=== PATIENT | female | born 1960 | race Two or more races ===

== ENCOUNTER 2024-02-14 15:29 | Emergency (ER) | payer OTHER, SELFPAY ==
--- NOTE | ~2024-02-14 | US_ITS ---
EXAMINATION: US VENOUS ULTRASOUND WITH DOPPLER LOWER EXTREMITY, LEFT CLINICAL INFORMATION: Left calf/posterior knee pain COMPARISON: None available. TECHNIQUE: Ultrasound of the deep veins is performed from the hip to the calf with compression sonography and color and pulse Doppler assessment. Spectral analysis with color-flow imaging is performed. FINDINGS: There is normal venous compression and respiratory variation and augmented flow. The visualized common femoral vein, superficial femoral vein, profunda femoral vein, popliteal vein, and the trifurcation region shows no evidence of deep venous thrombosis. There is no significant popliteal fossa cyst. If the patient's symptoms persist, followup ultrasound in 5 days 7 days might be of value to exclude proximal propagation from a non-visualized calf vein. US/US venous duplex LE LT IMPRESSION: No DVT demonstrated in the left lower extremity.
--- NOTE | ~2024-02-14 | XR_ITS ---
EXAMINATION: XR KNEE, LEFT CLINICAL INFORMATION: Knee pain COMPARISON: None available. TECHNIQUE: Four views of the left knee. FINDINGS: No evidence of acute fracture or malalignment. Tricompartmental left knee osteoarthritis, worst in the lateral femorotibial compartment, where it is least moderate as characterized by moderate joint space narrowing, osteophytosis, and subchondral sclerosis. Of note, evaluation of the joint space is limited in the absence of weightbearing views. Large suprapatellar joint effusion. Soft tissues unremarkable. XR/XR knee LT 4V IMPRESSION: 1. No evidence of acute fracture or malalignment of the left knee. 2. At least moderate tricompartmental left knee osteoarthritis with a large suprapatellar joint effusion.
[2024-02-14 16:02] VITALS: BP 117/69; PULSE 95; RESP 20; TEMP 36.2; O2SAT 100; BMI 37.1
--- NOTE | 2024-02-14 16:24 | ED.GENADULT ---
HPI - General Adult General Chief complaint: Extremity Problem Stated complaint: left leg swelling Time Seen by Provider: 02/14/24 16:42 Source: patient Mode of arrival: ambulatory Limitations: no limitations History of Present Illness ED Provider: Bridget FELIPE narrative: Patient is a 63-year-old female presenting to the emergency department with complaint of left posterior calf pain and left knee pain and swelling. States symptoms began 2 weeks ago with knee pain. She was seen at [facility] on 02/08 and noted to have osteoarthritis on x-ray. She was treated with a course of prednisone at that time which improved her symptoms, but once completed, the pain returned and is now in her calf as well. She denies chest pain or shortness of breath. Denies dizziness, lightheadedness. Denies fevers. Has not used any ÁNGEL wraps or other compression. complaint: left leg pain Onset (ago): week(s) Radiation: distal Quality: aching Pain Consistency: colicky Associated symptoms: denies other symptoms Treatments prior to arrival: other Related Data Previous Rx's ?Medication ?Instructions ?Recorded naproxen 500 mg tablet 500 mg PO BID PRN pain #14 tabs 02/14/24 prednisone 20 mg tablet 40 mg (2 x 20 mg) PO DAILY 5 days 02/14/24 #10 tabs Allergies Allergy/AdvReac Type Severity Reaction Status Date / Time No Known Allergies Allergy Verified 02/14/24 16:12 Review of Systems Review of Systems: As per HPI. Yes all other systems are reviewed and are negative Constitutional: Constitutional: Reports as per HPI [facility] Social History Social History Advance Directives: No Advance Directives Information Provided: No Physical Exam ED Vital Signs: Vital Signs - 24 hr 02/14/24 16:02 02/14/24 16:52 02/14/24 20:10 Temperature 97.1 F 96.8 F 97.1 F Pulse Rate 95 83 80 Respiratory Rate 20 18 18 Blood Pressure 117/69 136/69 139/68 Pulse Oximetry 100 98 99 Oxygen Delivery Method Room Air Room Air Room Air 02/14/24 21:22 Temperature 97.1 F Pulse Rate 80 Respiratory Rate 18 Blood Pressure 139/68 Pulse Oximetry 99 Oxygen Delivery Method Room Air BMI result Body Mass Index 37.1 Vital signs have been reviewed and appear to be correct. Blood pressure normal. Heart rate normal. Respiratory rate normal. Temperature normal. Oxygen saturation normal. Const General: cooperative and no acute distress Nutritional Appearance: obese Orientation/consciousness: oriented to person, oriented to place, oriented to time and patient oriented x3 Limitations: no limitations HENMT Head: Yes normocephalic and Yes atraumatic Ears: external ears normal General nose exam: Normal external nose present Face and sinus: Yes face symmetric Mouth: oropharynx normal and moist mucous membranes Throat: Yes uvula midline Eyes Pupils: Equal, round and reactive pupils present Neck Neck: Yes normal visual inspection and Yes supple Resp Effort & Inspection: normal respiratory effort and able to speak in complete sentences Auscultation: clear to auscultation bilaterally Cardio Rate: regular rate Rhythm: regular rhythm Heart sounds: S1 normal heart sound present and S2 normal heart sound present GI Palpation (GI): Soft to palpation and nontender Auscultation: normoactive bowel sounds General: Yes no CVA tenderness Back/Spine/Pelvis Back: no CVA tenderness Skin General skin exam: elasticity normal and turgor normal Neuro General: oriented to person, oriented to place, oriented to time, patient oriented x3, moves all extremities, no focal motor deficits and CN's II-XI intact bilaterally Cranial nerves: Yes Equal, round and reactive pupils present Cognition (Neuro): normal cognition Extrem General: Yes full ROM, Yes no pedal edema and Yes no calf tenderness Psych Mental Status: mental status grossly normal Affect: normal affect Thought process: Normal thought process present Course Course Course Narrative: RME: Done by EFRAIN villaseñor. 63 yold female presents to the ED For left posterionr and calf pain for 2 weeks. Patient an x-ray on the with showed osteoarthritis of left knee. Patient states symptoms improved with steroids but now left calf pain is worse. Physical exam negative for swelling, erythema, deformity, ecchymosis. X-ray labs ultrasound ordered.. Medical Decision Making Medical Decision Making MDM Narrative: Patient is a 63-year-old female presenting to the emergency department with complaint of left posterior calf pain and left knee pain and swelling. On exam patient is awake, A+Ox3, VS WNL, afebrile, normal neurological exam without focal deficits, physical exam findings as above. Given reported symptoms and physical exam findings, initial differential includes DVT, calf strain, osteoarthritis. Do not suspect septic arthritis. Labs notable for slight leukocytosis, elevated BUN. X-ray left knee notable for no evidence of fracture, moderate osteoarthritis with suprapatellar effusion. My interpretation is in agreement with the radiologist's interpretation. Patient signed out to EFRAIN Hare pending ultrasound results. Differential Diagnosis Differential Diagnoses: The differential diagnosis associated with the presentation includes As per [facility]. Admission/Observation Consideration of admission/observation: Escalation of care including admission/observation considered Patient would have been admitted to the hospital had their work up had any findings where hospital admission was appropriate and their clinical presentation warranted hospital admission. Lab Data [facility] Lab Attestation statement: I reviewed the patient's lab results. As per [facility] 02/14/24 16:26 02/14/24 16:26 Labs: Lab Results 02/14/24 Range/Units 16:26 WBC 12.9 H (4.8-10.8) X10*3/uL RBC 4.34 (4.20-5.50) X10*6/uL Hgb 12.7 (12.0-16.0) g/dl Hct 38.4 (37.0-47.0) % MCV 88.5 (80.0-98.0) fL MCH 29.3 (27.0-33.0) pg MCHC 33.1 (31.0-35.0) g/dl RDW 12.7 (11.0-16.0) % Plt Count 396 (160-400) X10*3/uL MPV 9.1 L (9.4-12.3) fL Immature Gran % (Auto) 2.3 H (0.0-0.4) % Neut % (Auto) 65.7 (45-73) % Lymph % (Auto) 23.3 (20-40) % [place] % (Auto) 6.6 (2-11) % Eos % (Auto) 1.6 (0-4) % Baso % (Auto) 0.5 (0-2) % Lymph # (Auto) 3.0 (1.2-4.9) X10*3/uL [place] # (Auto) 0.9 (0.1-1.2) X10*3/uL Eos # (Auto) 0.2 (0.0-0.4) X10*3/uL Baso # (Auto) 0.1 (0.0-0.2) X10*3/uL Abs Immat Gran (auto) 0.30 H (0.00-0.03) X10*3/uL Absolute Neuts (auto) 8.4 H (2.0-8.3) x10*3/uL Absolute Nucleated RBC 0.000 (0.0-0.012) X10*3/uL Nucleated RBC % (auto) 0.0 (0.0-0.2) /100WBC PT 11.9 (11.1-13.3) SEC INR 1.0 (0.9-1.1) APTT 29.5 (26.0-36.8) SEC Sodium 141 (135-145) mmol/L Potassium 4.5 (3.3-5.1) mmol/L Chloride 105 (96-108) mmol/L Carbon Dioxide 28 (22-29) mmol/L Anion Gap 13 (12-20) BUN 32 H (9-16) mg/dL Creatinine 1.00 (0.5-1.4) mg/dL Estim Creat Clear Calc 72.1 Estimated GFR 56 Random Glucose 130 H (60-115) mg/dL Calcium 9.6 (8.4-10.2) mg/dL Total Bilirubin 0.2 (0.0-1.0) mg/dL AST 12 (5-31) U/L ALT 11 (0-31) U/L Alkaline Phosphatase 73 (39-117) U/L Total Protein 7.4 (6.5-8.0) g/dL Albumin 4.2 (3.5-5.0) g/dL Independent Interpretation I performed an independent interpretation of an: Plain X-Ray Interpretation: X-ray left knee notable for no evidence of fracture, moderate osteoarthritis with suprapatellar effusion. Radiology Impression Discussion of test interpretation with radiology: I have reviewed the radiologist's reading. Radiologist Impression: XR/XR knee LT 4V IMPRESSION: 1. No evidence of acute fracture or malalignment of the left knee. 2. At least moderate tricompartmental left knee osteoarthritis with a large suprapatellar joint effusion. External Record Review External record reviewed: Inpatient record, Office record and Outpatient record Discharge Plan Discharge Clinical Impression: Left leg pain, Effusion of knee joint, left, Osteoarthritis Patient Disposition: Home, Self-Care Instructions: Osteoarthritis (ED), Swollen Knee Joint (ED) Additional Instructions: One of your labs was abnormal today, your BUN was 32 but your creatinine was normal. We recommend drinking plenty of fluids by mouth and following up with your primary care provider to have this rechecked. Return to the ED immediately okay for increased swelling, redness erythema, bluish black discoloration, stiffness, fever, chills, inability to walk, or any other concerning symptoms. US/US venous duplex LE LT IMPRESSION: No DVT demonstrated in the left lower extremity. XR/XR knee LT 4V IMPRESSION: 1. No evidence of acute fracture or malalignment of the left knee. 2. At least moderate tricompartmental left knee osteoarthritis with a large suprapatellar joint effusion. Prescriptions: New naproxen 500 mg tablet 500 mg PO BID PRN (Reason: pain) Qty: 14 0RF prednisone 20 mg tablet 40 mg PO DAILY 5 Days Qty: 10 0RF Referrals: [facility] [Provider Group] (left knee osteoarthritis. joint effussion in knee) Interventions: ED Discharge Assessment Last Done: 02/14/24 21:22 Discharge Date/Time: 02/14/24 21:22 Print Language: Greek
[2024-02-14 16:33] LABS: MANUAL DIFF FLAG NO
[2024-02-14 16:35] LABS: Basophils Absolute Auto 0.1 X10*3/uL (0.0-0.2); Basophils Percent Auto 0.5 % (0-2); Eosinophils Absolute Auto 0.2 X10*3/uL (0.0-0.4); Eosinophils Percent Auto 1.6 % (0-4); Hematocrit 38.4 % (37.0-47.0); Hemoglobin 12.7 g/dl (12.0-16.0); Imm Gran Pct Auto 2.3 % (0.0-0.4); Lymphocytes Percent Auto 23.3 % (20-40); Mean Corpuscular HGB Conc 33.1 g/dl (31.0-35.0); Mean Corpuscular Hemoglobin 29.3 pg (27.0-33.0); Mean Corpuscular Volume 88.5 fL (80.0-98.0); Mean Platelet Volume 9.1 fL (9.4-12.3); Monocytes Absolute Auto 0.9 X10*3/uL (0.1-1.2); Monocytes Percent Auto 6.6 % (2-11); Neutrophils Absolute Auto 8.4 x10*3/uL (2.0-8.3); Neutrophils Percent Auto 65.7 % (45-73); Platelet Count 396 X10*3/uL (160-400); Red Blood Count 4.34 X10*6/uL (4.20-5.50); Red Cell Distribution Width 12.7 % (11.0-16.0); White Blood Count 12.9 X10*3/uL (4.8-10.8)
[2024-02-14 16:44] LABS: Prothrombin Time 11.9 SEC (11.1-13.3)
[2024-02-14 16:47] LABS: Partial Thromboplastin Time 29.5 SEC (26.0-36.8)
[2024-02-14 16:52] VITALS: BP 136/69; PULSE 83; RESP 18; TEMP 36; O2SAT 98
[2024-02-14 17:07] LABS: Alanine Aminotransferase 11 U/L (0-31); Albumin Level 4.2 g/dL (3.5-5.0); Alkaline Phosphatase 73 U/L (39-117); Anion Gap 13 (12-20); Aspartate Amino Transferase 12 U/L (5-31); Bilirubin Total 0.2 mg/dL (0.0-1.0); Blood Urea Nitrogen 32 mg/dL (9-16); Calcium 9.6 mg/dL (8.4-10.2); Carbon Dioxide 28 mmol/L (22-29); Chloride 105 mmol/L (96-108); Creatinine Clr Calc Pharmacy 72.1; Estimated Glomerular Filt Rate 56; Glucose Random 130 mg/dL (60-115); Potassium 4.5 mmol/L (3.3-5.1); Sodium 141 mmol/L (135-145); Total Protein 7.4 g/dL (6.5-8.0)
[2024-02-14 20:10] VITALS: BP 139/68; PULSE 80; RESP 18; TEMP 36.2; O2SAT 99
[2024-02-14 21:22] VITALS: BP 139/68; PULSE 80; RESP 18; TEMP 36.2; O2SAT 99
== END 2024-02-14 21:22 | disposition home or self-care (01) ==
PROVIDERS: Physician Assistant; Emergency Provider Internal Medicine; PCP Internal Medicine
DX: R60.0 Localized edema (principal); M17.12 Unilateral primary osteoarthritis, left knee; M79.605 Pain in left leg; Z79.899 Other long term (current) drug therapy
CPT/HCPCS: 36415; 73564; 80053; 85025; 85610; 85730; 93971; 99283

== ENCOUNTER 2024-04-02 07:20 | Emergency (ER) | payer OTHER, SELFPAY ==
--- NOTE | ~2024-04-02 | XR_ITS ---
EXAMINATION: XR KNEE, RIGHT CLINICAL INFORMATION: Pain and swelling in right knee COMPARISON: None available. TECHNIQUE: Four views of the right knee. FINDINGS: The large suprapatellar joint effusion without loose bodies. No visible acute fracture or dislocation seen. There is loss of tricompartment joint space with periarticular spurring of medial and patellofemoral compartments. No visible acute fracture or dislocation seen. XR/XR knee RT 3V IMPRESSION: 1. Large suprapatellar joint effusion without loose bodies. 2. Degenerative changes medial and patellofemoral compartments. No visible acute fracture or dislocation seen. Electronically signed by: Hugo Jimenez MD 04/02/2024 08:05 AM EDT
[2024-04-02 07:29] VITALS: BP 152/88; PULSE 87; RESP 18; TEMP 36.7; O2SAT 100; BMI 37.4
--- NOTE | 2024-04-02 07:31 | ED_ITS ---
HPI - Extremity Injury (Lower) General Chief Complaint: Extremity Injury, Lower Stated Complaint: r knee swelling Time Seen by Provider: 04/02/24 07:21 Source: patient Mode of arrival: ambulatory Limitations: no limitations History of Present Illness HPI Narrative: This is a 63 years old patient presented to the emergency department complaining of right knee pain and swelling times week. She has history of arth ritis denies any trauma MD complaint: other (rt knee pain and swelling) Onset (ago): week(s) (1) Injury: Right: knee Severity: moderate Relieving factors: nothing Exacerbating factors: nothing Related Data Previous Rx's ?Medication ?Instructions ?Recorded naproxen 500 mg tablet 500 mg PO BID PRN pain #14 tabs 02/14/24 prednisone 20 mg tablet 40 mg (2 x 20 mg) PO DAILY 5 days 02/14/24 #10 tabs prednisone 20 mg tablet 20 mg PO DAILY 5 days #5 tabs 04/02/24 Allergies Allergy/AdvReac Type Severity Reaction Status Date / Time No Known Allergies Allergy Verified 04/02/24 07:30 Review of Systems Constitutional: Constitutional: Reports no additional constitutional complaints ENT: Reports system reviewed and no additional complaints, except as documented Respiratory: Respiratory: Reports no additional respiratory complaints [facility] Past Medical History [facility] Narrative: Arthritis Social History Social History Smoked in Last 30 Days: No Use of substances other than those prescribed or required for medical reasons: No Advance Directives: No Advance Directives Information Provided: No Physical Exam Vital Signs: Vital Signs: Last Vital Signs Temp 98.0 F 04/02/24 11:28 Pulse 78 04/02/24 11:28 Resp 16 04/02/24 11:28 BP 145/67 H 04/02/24 11:28 Pulse Ox 99 04/02/24 11:28 O2 Del Method Room Air 04/02/24 11:28 BMI result Body Mass Index 37.4 Const: General: cooperative Nutritional Appearance: average body habitus Orientation/consciousness: patient oriented x3 Limitations: no limitations HEENT: Head: Yes normal to inspection Ears: hearing grossly normal bilaterally General nose exam: Normal external nose present Face and sinus: Yes normal facial exam Mouth: Normal oral and palatal mucosa present Teeth and gingiva: dentition normal Throat: Yes posterior oropharynx normal Neck: Neck: Yes normal visual inspection Chest: Chest palpation & inspection: normal inspection of the chest Resp: Effort & Inspection: normal respiratory effort Auscultation: clear to auscultation bilaterally Cardio: Jugular venous distension: no JVD Rate: regular rate Rhythm: regular rhythm GI: Inspection: Yes normal to inspection Auscultation: normal bowel sounds Skin: General skin exam: no rashes or lesions noted Lesions: no lesions Rashes: no rashes Neuro: General: patient oriented x3 Extrem: Other: Examination of the right knee showed joint effusion no deformity no redness Right lower extremity: normal capillary refill Course Reevaluation(s) Reevaluation #1: Patient remained stable she is afebrile I do not think she has a septic joint results of the synovial fluid is pending including uric acid I called the labs they said that it is a sent out test to [facility], patient stated the past she did really well with prednisone I will give a prescription for prednisone. Again at this point the synovial fluid result is pending G stain is negative no organisms seen Time: 11:23 Medications Administered Discontinued Medications Generic Name Dose Route Start Last Admin Trade Name Freq PRN Reason Stop Dose Admin Lidocaine HCl 10 ml 04/02/24 09:15 04/02/24 10:02 Lidocaine Hcl 1 % Mpf 5 Ml Vial INFILTRATI 04/02/24 09:16 10 ml ONCE ONE Administration Medical Decision Making Lab Data Labs: Lab Results 04/02/24 Range/Units 09:20 Synovial Source rt knee Synovial WBC 15.714 X10*3/uL Synovial RBC < 0.002 X10*6/uL Synovial Neutrophils 90 % Synovial Lymphocytes 2 % Synovial Monocytes 1 % Synovial Other Cells 1 Procedures Procedure Narrative Procedure Narrative: Right knee arthrocentesis Under local anesthesia I inserted 18 gauge needle aspirated about 70 cc of synovial fluid the fluid was sent to the labs for culture cell count uric acid patient tolerated the procedure well Discharge Plan Discharge Clinical Impression: Effusion, right knee Patient Disposition: Home, Self-Care Instructions: Swollen Knee Joint (ED), Joint Aspiration (DC) Additional Instructions: Follow-up with your primary care physician take prednisone as directed. Prescriptions: New prednisone 20 mg tablet 20 mg PO DAILY 5 Days Qty: 5 0RF No Action naproxen 500 mg tablet 500 mg PO BID PRN (Reason: pain) Qty: 14 0RF prednisone 20 mg tablet 40 mg PO DAILY 5 Days Qty: 10 0RF Referrals: Pedro Luis Jalloh MD [Primary Care Provider] - 04/05/24 Interventions: ED Discharge Assessment Last Done: 04/02/24 11:28 Print Language: Bengali
--- NOTE | 2024-04-02 07:36 | PC.NURSE ---
patient presents through external triage with cc of right knee pain and swelling for the last 3 days. patient states she has a hx of arthritis, had a similar episode recently with her left knee and recieved a cortisone shot with good effect. patient denies any recent falls, denies fevers or chills or sick contacts. CMS intact on right side, some weakness and stiffness to right knee. knee presents swollen and tender to the touch, provided with ice pack for comfort. MD at bedside to evaluate patient, patient awaiting xray at this time
[2024-04-02 07:39] VITALS: BP 152/88; PULSE 87; RESP 18; TEMP 36.7; O2SAT 100
[2024-04-02 09:30] LABS: Source Synovial Fluid rt knee
[2024-04-02] MEDS: Lidocaine HCl 1 % MPF 5 ML VIAL 10 ML INFILTRATI (10:02)
[2024-04-02 10:11] LABS: MN% 12.8 %; PMN% 87.2 %; RBC Synovial Fluid < 0.002 X10*6/uL
[2024-04-02 10:12] LABS: WBC Synovial Fluid 15.714 X10*3/uL
[2024-04-02 10:37] LABS: BF Shift QC OK YES; Lymphocytes Synovial Fluid 2 %; Man Diluent Bkgrd OK YES; Monocytes Synovial Fluid 1 %; Neutrophils Synovial Fluid 90 %; Other Cells Synovial Fluid 1
[2024-04-02 10:43] VITALS: BP 145/67; PULSE 78; RESP 16; TEMP 36.7; O2SAT 99
[2024-04-02 11:28] VITALS: BP 145/67; PULSE 78; RESP 16; TEMP 36.7; O2SAT 99
[2024-04-07 07:31] LABS: Uric Acid Synovial Fluid 4.3
[2024-04-07 07:32] LABS: Glucose Synovial Fluid 14
== END 2024-04-02 11:31 | disposition home or self-care (01) ==
PROVIDERS: Emergency Provider Emergency Medicine; PCP Internal Medicine
DX: M25.461 Effusion, right knee (principal); M25.561 Pain in right knee; Z79.52 Long term (current) use of systemic steroids
CPT/HCPCS: 20610; 73562; 82945; 83615; 84560; 87070; 87073; 87205; 89051; 99284; 99285

== ENCOUNTER 2025-05-14 10:59 | Emergency (ER) | payer OTHER, SELFPAY ==
--- NOTE | ~2025-05-14 | CT_ITS ---
CLINICAL HISTORY: large abscess CT chest with IV contrast. COMPARISON: None provided. FINDINGS: No supraclavicular or axillary lymphadenopathy. Ascending aorta and main pulmonary artery are normal in caliber. Mitral annular calcification. No pericardial effusion. Small hiatal hernia. No mediastinal lymphadenopathy. No pleural effusion. Minimal atelectasis along the posterior lower lobes. Trachea and central airways are clear. No significant bronchial wall thickening. No bronchiectasis. Organizing subcutaneous fluid collection present along the anterior lower chest wall at midline measuring 2.6 x 3.6 by 3.5 cm. No foreign body or extension into the chest or peritoneal cavity. Visualized portions of the upper abdomen are unremarkable. Moderate spondylosis. No acute fracture. IMPRESSION: 1. Subcutaneous abscess measuring up to 3.6 cm present along the lower chest/upper abdomen. No extension into the chest wall or peritoneal cavity. No foreign body identified. This document has been electronically signed by: Gaudencio Espinal MD on 05/14/2025 16:05:54
[2025-05-14 11:10] VITALS: BP 122/73; PULSE 92; RESP 14; TEMP 36.4; O2SAT 100; BMI 34.4
--- NOTE | 2025-05-14 11:38 | ED_ITS ---
HPI - General Adult General Chief complaint: Skin/Abscess/Foreign Body Stated complaint: abscess chest Time Seen by Provider: 05/14/25 13:24 Source: patient, RN notes reviewed and old records reviewed Mode of arrival: ambulatory Limitations: no limitations History of Present Illness ED Provider: Br[facility] narrative: Patient is a 64-year-old female presenting to the emergency department with complaint of abscess to her chest for the past month. States that it started out as a small area of erythema and has increased in size and is now causing pain. She denies any fevers, chills, body aches. Reports history of similar abscess in this area in the past. Also complains of increased pain to the area with swallowing. MD complaint: abscess Onset (ago): month(s) Related Data Previous Rx's ?Medication ?Instructions ?Recorded naproxen 500 mg tablet 500 mg PO BID PRN pain #14 t abs 02/14/24 prednisone 20 mg tablet 40 mg (2 x 20 mg) PO DAILY 5 days 02/14/24 #10 tabs prednisone 20 mg tablet 20 mg PO DAILY 5 days #5 tab s 04/02/24 cephalexin 500 mg capsule 500 mg PO QID 7 days #28 cap s 05/14/25 doxycycline hyclate 100 mg capsule 100 mg PO BID #14 c aps 05/14/25 Allergies Allergy/AdvReac Type Severity Reaction Status Date / Time No Known Allergies Allergy Verified 05/14/25 11:14 Review of Systems 2 Review of Systems: as per hpi Yes all other systems are reviewed and are negative Constitutional: Constitutional: Reports as per HPI Physical Exam ED Vital Signs: Vital Signs - 24 hr 05/14/25 11:10 05/14/25 14:36 05/14/25 16:26 Temperature 97.5 F 97.8 F 98.2 F Pulse Rate 92 92 82 Respiratory Rate 14 20 19 Blood Pressure 122/73 127/77 126/70 Pulse Oximetry 100 100 98 Oxygen Delivery Method Room Air Room Air Room Air BMI result Body Mass Index 34.4 Vital signs have been reviewed and appear to be correct. Blood pressure normal. Heart rate normal. Respiratory rate normal. Temperature normal. Oxygen saturation normal. Const General: cooperative, healthy appearing and no acute distress Orientation/consciousness: oriented to person, oriented to place, oriented to time and patient oriented x3 Limitations: no limitations HENMT Head: Yes normocephalic and Yes atraumatic Ears: external ears normal General nose exam: Normal external nose present Face and sinus: Yes face symmetric Mouth: oropharynx normal and moist mucous membranes Throat: Yes uvula midline Eyes Pupils: Equal, round and reactive pupils present Neck Neck: Yes normal visual inspection and Yes supple Chest Chest/axillae images: 2 1. 4cm abscess with surrounding erythema, pinhole areas of purulent drainage Resp Effort & Inspection: normal respiratory effort and able to speak in complete sentences Auscultation: clear to auscultation bilaterally Cardio Rate: regular rate Rhythm: regular rhythm Heart sounds: S1 normal heart sound present and S2 normal heart sound present GI Palpation (GI): Soft to palpation and nontender Auscultation: normoactive bowel sounds General: Yes no CVA tenderness Back/Spine/Pelvis Back: no CVA tenderness Skin General skin exam: elasticity normal and turgor normal Neuro General: oriented to person, oriented to place, oriented to time, patient oriented x3, moves all extremities, no focal motor deficits and CN's II-XI intact bilaterally Cranial nerves: Yes Equal, round and reactive pupils present Cognition (Neuro): normal cognition Extrem General: Yes full ROM, Yes no pedal edema and Yes no calf tenderness Psych Mental Status: mental status grossly normal Affect: normal affect Thought process: Normal thought process present Course Course Course Narrative: Rapid medical examination performed in triage by Ghazal Natarajan PA-C. Patient is a 64 year old assigned female at presenting to the emergency department with an abscess on her chest. Detailed physical exam and review of systems are deferred to the primary special educator. Labs ordered. Patient placed back in the waiting room pending room availability and results. Medications Administered Discontinued Medications Generic Name Dose Route Start Last Admin Trade Name Jacoboq PRN Reason Stop Dose Admin Iohexol 100 ml 05/14/25 15:24 05/14/25 15:24 Iohexol 350 Mg/Ml 100 Ml Infus..Btl IV 05/14/25 15:25 85 ml ONCE ONE Administration Procedures Abscess I/D Site: chest Sedation/analgesia: other (morphine) Local Anesthetic: lidocaine 1% Amount of anesthesia used (mL): 3 Technique: incised with blade Amount of fluid expressed (mL): 5 Sent for culture/gram staining?: No Irrigation: Yes Packing used?: none Medical Decision Making Medical Decision Making MDM Narrative: Patient is a 64-year-old female presenting to the emergency department with complaint of abscess to her chest for the past month. On exam patient is awake, A+Ox3, VS WNL, afebrile, normal neurological exam without focal deficits, physical exam findings as above. Given reported symptoms and physical exam findings, initial differential includes but is not limited to superficial abscess versus deep space infection. Labs notable for no leukocytosis, mildly elevated ESR and CRP. CT chest notable for subcutaneous abscess not extending into chest wall. My interpretation is in agreement with the radiologist's interpretation. Abscess incised and drained as per procedure note. Patient tolerated well, no complications. Will discharge patient home on doxy and Keflex. Advised skin checks at least once per day. Return precautions discussed at bedside. Follow up with PCP. Patient verbalized understanding of and agreement with plan. Differential Diagnosis Differential Diagnoses: The differential diagnosis associated with the presentation includes As per [facility] Admission/Observation Consideration of admission/observation: Escalation of care including admission/observation considered Patient would have been admitted to the hospital and transferred to appropriate facility had their clinical presentation warranted hospital admission. Lab Data [facility] Lab Attestation statement: I reviewed the patient's lab results. as per [facility] 05/14/25 12:09 05/14/25 12:09 Labs: Lab Results 05/14/25 Range/Units 12:09 WBC 8.3 (4.8-10.8) X10*3/uL RBC 4.72 (4.20-5.50) X10*6/uL Hgb 13.2 (12.0-16.0) g/dl Hct 40.5 (37.0-47.0) % MCV 85.8 (80.0-98.0) fL MCH 28.0 (27.0-33.0) pg MCHC 32.6 (31.0-35.0) g/dl RDW 14.6 (11.0-16.0) % Plt Count 254 D (160-400) X10*3/uL MPV 9.4 (9.4-12.3) fL Immature Gran % (Auto) 0.6 H (0.0-0.4) % Neut % (Auto) 64.9 (45-73) % Lymph % (Auto) 25.7 (20-40) % Harris % (Auto) 6.5 (2-11) % Eos % (Auto) 1.9 (0-4) % Baso % (Auto) 0.4 (0-2) % Lymph # (Auto) 2.1 (1.2-4.9) X10*3/uL Harris # (Auto) 0.5 (0.1-1.2) X10*3/uL Eos # (Auto) 0.2 (0.0-0.4) X10*3/uL Baso # (Auto) 0.0 (0.0-0.2) X10*3/uL Abs Immat Gran (auto) 0.05 H (0.00-0.03) X10*3/uL Absolute Neuts (auto) 5.4 (2.0-8.3) x10*3/uL Absolute Nucleated RBC 0.000 (0.0-0.012) X10*3/uL Nucleated RBC % (auto) 0.0 (0.0-0.2) /100WBC ESR 28 H (0-20) MM/HR Sodium 145 (135-145) mmol/L Potassium 3.9 (3.3-5.1) mmol/L Chloride 110 H (96-108) mmol/L Carbon Dioxide 25 (22-29) mmol/L Anion Gap 14 (12-20) BUN 20 H (9-16) mg/dL Creatinine 0.83 (0.5-1.4) mg/dL Estim Creat Clear Calc 82.3 Estimated GFR > 60 Random Glucose 89 (60-115) mg/dL Calcium 9.3 (8.4-10.2) mg/dL Total Bilirubin 0.4 (0.0-1.0) mg/dL AST 16 (5-31) U/L ALT 13 (0-31) U/L Alkaline Phosphatase 70 (39-117) U/L C-Reactive Protein 1.19 H (< or = 0.50) mg/dL Total Protein 6.9 (6.5-8.0) g/dL Albumin 4.3 (3.5-5.0) g/dL Independent Interpretation I performed an independent interpretation of an: CT Scan Interpretation: CT chest notable for subcutaneous abscess not extending into chest wall. Radiology Impression Discussion of test interpretation with radiology: I have reviewed the radiologist's reading. Radiologist Impression: CT chest with IV contrast. COMPARISON: None provided. FINDINGS: No supraclavicular or axillary lymphadenopathy. Ascending aorta and main pulmonary artery are normal in caliber. Mitral annular calcification. No pericardial effusion. Small hiatal hernia. No mediastinal lymphadenopathy. No pleural effusion. Minimal atelectasis along the posterior lower lobes. Trachea and central airways are clear. No significant bronchial wall thickening. No bronchiectasis. Organizing subcutaneous fluid collection present along the anterior lower chest wall at midline measuring 2.6 x 3.6 by 3.5 cm. No foreign body or extension into the chest or peritoneal cavity. Visualized portions of the upper abdomen are unremarkable. Moderate spondylosis. No acute fracture. IMPRESSION: 1. Subcutaneous abscess measuring up to 3.6 cm present along the lower chest/upper abdomen. No extension into the chest wall or peritoneal cavity. No foreign body identified. External Record Review External record reviewed: Inpatient record, Office record and Outpatient record Prescription Management I considered prescription management with: Antibiotic Discharge Plan Discharge Clinical Impression: Abscess of chest Patient Disposition: Home, Self-Care Instructions: Abscess (ED), Abscess Follow-up (ED), Abscess Incision and Drainage (DC) Additional Instructions: You were evaluated in the ER for an abscess. Please keep the area surrounding the abscess clean and dry. You were given a prescription for antibiotics, please take the antibiotics as directed for the full course of the medication. You should perform a skin check of the area at least once per day. You can use Tylenol or ibuprofen per package directions as needed for pain. If necessary, you can alternate these medications so that you take one medication every 3 hours. For instance, at noon take ibuprofen, then at 3:00 p.m. take Tylenol, then at 6:00 p.m. take ibuprofen. Please schedule an appointment with your primary care physician as soon as possible for follow-up. Return to the emergency department if you experience fevers greater than 100.4? F, increased in area of redness or swelling, increasing amount of discharge from the area, increased tenderness around the area, or any other concerning symptoms. Prescriptions: New doxycycline hyclate 100 mg capsule 100 mg PO BID Qty: 14 0RF cephalexin 500 mg capsule 500 mg PO QID 7 Days Qty: 28 0RF No Action naproxen 500 mg tablet 500 mg PO BID PRN (Reason: pain) Qty: 14 0RF prednisone 20 mg tablet 40 mg PO DAILY 5 Days Qty: 10 0RF prednisone 20 mg tablet 20 mg PO DAILY 5 Days Qty: 5 0RF Print Language: Swedish
[2025-05-14 12:13] LABS: MANUAL DIFF FLAG NO
[2025-05-14 12:14] LABS: Hematocrit 40.5 % (37.0-47.0); Hemoglobin 13.2 g/dl (12.0-16.0); Imm Gran Abs Auto 0.05 X10*3/uL (0.00-0.03); Imm Gran Pct Auto 0.6 % (0.0-0.4); Lymphocytes Absolute Auto 2.1 X10*3/uL (1.2-4.9); Mean Corpuscular HGB Conc 32.6 g/dl (31.0-35.0); Mean Corpuscular Hemoglobin 28.0 pg (27.0-33.0); Mean Corpuscular Volume 85.8 fL (80.0-98.0); NRBC Abs Auto 0.000 X10*3/uL (0.0-0.012); NRBC Pct Auto 0.0 /100WBC (0.0-0.2); Platelet Count 254 X10*3/uL (160-400); Red Blood Count 4.72 X10*6/uL (4.20-5.50); White Blood Count 8.3 X10*3/uL (4.8-10.8)
[2025-05-14 12:27] LABS: Alanine Aminotransferase 13 U/L (0-31); Albumin Level 4.3 g/dL (3.5-5.0); Alkaline Phosphatase 70 U/L (39-117); Anion Gap 14 (12-20); Aspartate Amino Transferase 16 U/L (5-31); Blood Urea Nitrogen 20 mg/dL (9-16); Calcium 9.3 mg/dL (8.4-10.2); Carbon Dioxide 25 mmol/L (22-29); Chloride 110 mmol/L (96-108); Creatinine Clr Calc Pharmacy 82.3; Estimated Glomerular Filt Rate > 60; Potassium 3.9 mmol/L (3.3-5.1); Sodium 145 mmol/L (135-145); Total Protein 6.9 g/dL (6.5-8.0)
--- OUTSIDE RECORDS SUMMARY | 2025-05-14 13:40 | XMS_ITS | Clinical Summary ---
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 12/03/19 22 Active cholecalciferol (VITAMIN D-3) 50 mcg (2,000 unit) capsule Take 1 Capsule by mouth daily. Active mupirocin (BACTROBAN) 2 % ointment Apply locally twice daily Active inhalat.spacing dev,med. mask spacer 1 Each by Does not apply route as needed for Other (to use with inhalers advair and albuterol)., Active rOPINIRole (REQUIP) 0.25 mg tablet TAKE 1 TABLET BY MOUTH EVERY DAY 1-3 HOURS BEFORE BEDTIME FOR 30 DAYS 07/04/20 24 Active losartan (COZAAR) 100 mg tablet TAKE 1 TABLET BY MOUTH EVERY DAY 90 tablet 2 08/09/19 25 Active sertraline (ZOLOFT) 100 mg tabletIndications :Anxiety and depression Take 1 tablet (100 mg total) by mouth 1 (one) time each day. 09/12/19 25 Active hydrOXYzine HCL (ATARAX) 50 mg tablet Take 1 tablet (50 mg total) by mouth at bedtime. 09/02/19 25 Active albuterol HFA (PROAIR HFA ; PROVENTIL HFA ; VENTOLIN HFA) 90 mcg/actuation inhalerIndication s:Moderate persistent asthma without complication Inhale 2 puffs by mouth every 4 (four) hours if needed for wheezing. 18 g 3 09/13/19 25 Active fluticasone furoate-vilantero L (Breo Ellipta) 100-25 mcg/dose inhalerIndication s:Moderate persistent asthma without complication Inhale 1 puff by mouth 1 (one) time each day. 1 each 09/13/19 25 Active ibuprofen (ADVIL,MOTRIN) 800 mg tablet TAKE 1 TABLET BY MOUTH EVERY 8 HOURS NEEDED FOR PAIN 90 tablet 4 12/06/19 25 Active gabapentin (NEURONTIN) 300 mg capsule Take 1 capsule (300 mg total) by mouth 3 (three) times a day. 90 capsule 5 12/31/19 25 Active diclofenac (VOLTAREN) 1 % topical gel Apply 2 g topically 4 (four) times a day if needed (pain). 100 g 3 12/31/19 25 025 Active cyclobenzaprine (FLEXERIL) 10 mg tablet Take 1 tablet (10 mg total) by mouth 3 (three) times a day if needed for muscle spasms. 30 tablet 2 12/31/19 25 026 Active calcium carbonate-vitamin D 500 mg-5 mcg (200 unit) per tablet Take 1 tablet by mouth 2 (two) times a day. 180 each 3 12/31/19 25 026 Active levothyroxine (SYNTHROID, LEVOTHROID) 175 mcg tablet TAKE 1 TABLET BY MOUTH EVERY DAY 90 tablet 3 01/05/20 25 Active loratadine (Claritin) 10 mg tabletIndications :Moderate persistent asthma without complication,Seas onal allergic rhinitis, unspecified trigger Take 1 tablet (10 mg total) by mouth 1 (one) time each day. 30 each 1 01/13/20 25 Active solifenacin (VESICARE) 5 mg tabletIndications :OAB (overactive bladder) TAKE 1 TABLET BY MOUTH 1 (ONE) TIME EACH DAY. SWALLOW TABLET WHOLE DO NOT CRUSH, CHEW, OR SPLIT. 90 tablet 02/14/20 25 Active sertraline (ZOLOFT) 50 mg tablet Take 1 tablet (50 mg total) by mouth 1 (one) time each day. Take together with 100mg to make 150mg daily 01/13/20 25 Active Breo Ellipta 200-25 mcg/dose inhalerIndication s:Moderate persistent asthma, uncomplicated INHALE UN SOPLIDO POR VIA ORAL TODOS LOS TORO 60 each 2 04/11/20 25 Active acetaminophen (TYLENOL) 500 mg tablet Take 1 tablet (500 mg total) by mouth every 8 (eight) hours if needed for mild pain. 03/29/20 25 Active tirzepatide, weight loss, (Zepbound) 15 mg/0.5 mL injectionIndicati ons:Class 2 obesity due to excess calories with body mass index (BMI) of 39.0 to 39.9 in adult, unspecified whether serious comorbidity present Inject 0.5 mL (15 mg total) under the skin every 7 (seven) days. 2 mL 5 05/05/20 25 026 Active tirzepatide, weight loss, (Zepbound) 15 mg/0.5 mL injectionIndicati ons:Class 2 obesity due to excess calories with body mass index (BMI) of 39.0 to 39.9 in adult, unspecified whether serious comorbidity present Inject 0.5 mL (15 mg total) under the skin every 7 (seven) days. 2 mL 04/07/20 25 025 Discontin ued(Reord er) Active Problems Problem Noted Date Diagnosed Date Varicose veins of bilateral lower extremities with other complications 07/13/2024 Postoperative hypothyroidism 07/13/2024 Overview (07/13/2024): -2ary to Graves Impaired glucose tolerance 07/13/2024 Heartburn 07/13/2024 Vitamin D deficiency 09/14/2023 PLMD (periodic limb movement disorder) 0 Overview (10/05/2023): Noted on BiPAP study 2020. Asthma 05/24/2019 Overview (10/05/2023): Last Assessment & Plan: It does not seem to me that the dyspnea is related to asthma. I explained her that I will order an echocardiogram just to make sure that there is no alternative causes for the dyspnea on exertion. I recommended to continue using the Advair and in the next visit Ingrid will evaluate if she deserves a change. With the history of mostly dyspnea on exertion and not wheezing and within normal pulmonary function test I explained her that I did not think that I did not think that the dyspnea on exertion was related to asthma but mostly deconditioning but I will do the echocardiogram. Obese 05/24/2019 Hypothyroidism 10/14/2017 Overview (10/05/2023): Total thyroidectomy for hyperthyroid Jul, 2014 Spondylosis of lumbar region without myelopathy or radiculopathy 07/06/2017 Internal hemorrhoids 02/10/2017 Fibromyalgia 10/20/2016 Overview (10/05/2023): Citalopram kept her up at night 09/2016. Gabapentin made her more anxious 2015. PAU (obstructive sleep apnea) 09/04/2016 Overview (10/05/2023): [facility] Polysomnogram treatment study. Date 08/21/2019. Wt 218#; BMI 35; SE 90 % SM 93 %; spent 24 % of the study in REM. On BiPAP @ 18/12; RDI 2.2 (AHI 1.8), Central apneas 0; Obstructive apneas 1; Mixed apneas 1; hypopneas 7; RERAs 2; and, average oxygen saturation was 92%. For the entire study, PLMs ~20. Last Assessment & Plan: Patient is having supplier problems with [employer]. She will call again the company. She will follow-up with Ingrid in her next appointment with a compliance report. Osteoarthritis of both knees 09/04/2016 Adenoma of large intestine 02/22/2014 Overview (07/13/2024): sessile serrated adenoma repeat colonoscopy in 2017 HTN (hypertension) Asthma Anxiety and depression Encounters Date Type Department Care Team Description 05/04/2025 Telephone Bariatric Surgery [facility] [address] [facility] [address] [place] [phone] Shania Macdonald MD 04/13/2025 1:00 PM EDT Office Visit Orthopedics - [address] [phone] Herman Albarran PA Primary osteoarthritis of both knees (Primary Dx) 04/13/2025 Telephone Pulmonology [address] [phone] Saige Krueger NP 04/10/2025 11:30 AM EDT Treatment [address] [phone] Dmitri Hart, PT Primary osteoarthritis of both knees (Primary Dx); Pain in both lower extremities 04/06/2025 11:30 AM EDT Treatment [address] [phone] Larry Rodriguez, [employer] [facility] Primary osteoarthritis of both knees (Primary Dx) 03/30/2025 Telephone Internal Medicine [address] [phone] Minerva Terrell PA 03/29/2025 11:30 AM EDT Treatment [address] [phone] Dmitri Hart, PT Primary osteoarthritis of both knees (Primary Dx); Pain in both lower extremities 03/27/2025 10:45 AM EDT Office Visit Orthopedics - [address] [phone] Herman Albarran PA Primary osteoarthritis of both knees (Primary Dx) 03/27/2025 10:15 AM EDT - 03/27/2025 11:59 PM EDT Hospital Encounter XRAY - [address] [phone] Chronic pain of both knees Discharge Disposition: Home or Self Care 03/22/2025 9:30 AM EDT Treatment [address] [phone] Eric Bains PTA Primary osteoarthritis of both knees (Primary Dx) 03/22/2025 Telephone Pulmonology [address] [place] [phone] Kelsie Bowles [place] 03/20/2025 1:00 PM EDT Office Visit Pulmonology [address] [phone] Saige Krueger NP PAU (obstructive sleep apnea) (Primary Dx); PLMD (periodic limb movement disorder); Insomnia due to other mental disorder; Moderate persistent asthma without complication; Seasonal allergic rhinitis, unspecified trigger; Heartburn; Class 2 obesity due to excess calories in adult, unspecified BMI, unspecified whether serious comorbidity present 03/20/2025 12:30 PM EDT Treatment [address] [phone] Rafael Flores PTA Primary osteoarthritis of both knees (Primary Dx) 03/02/2025 2:00 PM EDT Telemedicine Internal Medicine [address] [phone] Minerva Terrell PA Primary hypertension (Primary Dx); Postoperative hypothyroidism; Moderate persistent asthma without complication; Obesity (BMI 30-39.9); Fibromyalgia; Primary osteoarthritis of both knees; Anxiety and depression 03/02/2025 Telephone Bariatric Surgery [address] [phone] Shania Macdonald MD from Last 3 Months Immunizations Immunization Administration Dates Next Due Influenza trivalent, with pr eservative (Fluzone; Afluria) 6mo and older 07/12/2014,06/01/2012,09/26/2010 Pneumococcal conjugate 13 va lent (Prevnar 13, PCV13) 2mo and older 12/14/2017 Td, Unspecified 09/26/2010 Tdap Tetanus diptheria acell ular pertussis (Boostrix; Adacel) 7yo and older 03/03/2016 Surgical History Surgery Date Site/Laterality Comments THYROIDECTOMY Jul 2014 PROCEDURE: HISTORICAL TOTAL THYROIDECTOMY SECTION PROCEDURE: HISTORICAL TUBAL LIGATION Medical History Medical History Date Comments Osteoarthritis of both knees 09/04/2016 DX: Osteoarthritis of both knees PAU (obstructive sleep apnea) 09/04/2016 DX :PAU (obstructive sleep apnea); COMMENT: On CPAP Hypothyroidism 10/14/2017 DX:Hypothyroidis m; COMMENT: Total thyroidectomy for hyperthyroid Jul, 2014 Internal hemorrhoids 02/10/2017 DX:Internal hemorrhoids Morbid obesity with BMI of 4 0.0-44.9, adult ([facility] V24, [facility] V28) 05/04/2017 DX:Morbid obesity wit h BMI of 40.0-44.9, adult ([facility]) Fibromyalgia 10/20/2016 DX:Fibromyalgia; COMMENT: Citalopram kept her up at night 09/2016. Gabapentin made her more anxious 2015. Spondylosis of lumbar region without myelopathy or radiculopathy 07/06/2017 DX:Spondylosis of lumbar r egion without myelopathy or radiculopathy Vitamin D deficiency DX:Vitamin D deficiency HTN (hypertension) Asthma Anxiety and depression Family History Medical History Relation Name Comments Arthritis Brother 1 Heart attack Brother 1 CABG Brother 2 Other: Heart Arrythmia Brother 3 Arthritis Mother Heart attack Mother 4 WA's Heart attack Other 1 uncle Breast cancer Other 2 mom side Breast cancer Other 3 moms side cousin Relation Name Status Comments Brother 1 Brother 2 Brother 3 Father Mother Other 1 uncle Other 2 mom side Other 3 moms side cousin Alive Social History Tobacco Use Types Packs/Day Years Used Date Smoking Tobacco: Former Smokeless Tobacco: Never Tobacco Cessation:Counseling Given: Not Answered Alcohol Use Standard Drinks/Week Comments No 0 (1 standard drink = 0.6 oz pur e alcohol) Housing Instability Answer Date Recorde d Are you worried that in the next 2 months you may not have stable housing? No 06/16/2024 Food Access & Nutrition Answer Date Rec orded Do you have access to a vari ety of food including fruits and vegetables? Yes 06/16/2024 Financial Risk Answer Date Recorded How hard is it for you to pa y for the very basics like food, housing, medical care, and air conditioning / heating? Hard 06/16/2024 Food Risk Answer Date Recorded Within the past 12 months we worried whether our food would run out before we got money to buy more. Sometimes true 024 Within the past 12 months th e food we bought just didn t last and we didn t have money to get more. Not on file 06/16/2024 Living Situation Answer Date Recorded What is your living situation? Unrecognized valu e 06/16/2024 Comments No Sex and Gender Information Value Date Recorded Sex Assigned at Female 07/14/2024 11:11 AM EST Legal Sex Female 11:03 PM EST Gender Identity Female 07/14/2024 11:11 AM EST Sexual Orientation Not on file Occupation Industry Job Start Date Job End Date Disability Not on file Not on file Not on file Obstetrics History Para Term AB IAB SAB Ectopic Multiple Livin g Live Births 3 3 3 3 Date Outcome GA Total Labor Labor/2nd/3rd Weight Sex Type Anes PTL Jackelin A1 A5 Name Clin 1985 Para F Vag-S pont Living 1989 Para M CS-Un spec Living 1993 Para F CS-Un spec Living Last Filed Vital Signs Vital Sign Reading Time Taken Comments Blood Pressure 124/84 03/20/2025 1:07 PM EDT Pulse 100 03/20/2025 1:07 PM EDT Temperature 36.6 C (97.8 F) 03/20/2025 1:07 PM EDT Respiratory Rate 16 04/13/2025 12:57 PM EDT Oxygen Saturation 98% 03/20/2025 1:07 PM EDT Inhaled Oxygen Concentration - - Weight 106 kg (233 lb) 04/13/2025 12:57 PM EDT Height 167.6 cm (5' 6 ) 04/13/2025 12:57 PM EDT Body Mass Index 37.61 04/13/2025 12:57 PM EDT Plan of Treatment Upcoming Encounters Date Type Department Care Team (Late st Contact Info) Description 05/25/2025 10:30 AM EDT Office Visit Orthopedics - [place] [address] [place] [phone] Herman Albarran PA [address] [place] [phone] 06/01/2025 9:00 AM EDT Office Visit Bariatric Surgery - [place] [address] [facility] [address] [place] [phone] Shania Macdonald MD [address] [place] [phone] 09/20/2025 11:25 AM EST Office Visit Pulmonology - [place] [address] [facility] [address] [place] [phone] Saige Krueger NP [address] [place] [phone] Health Maintenance Due Date Last Done Comments RSV Immunization Adult Patients (1 - Risk 50-74 years 1-dose series) 2012 Zoster Vaccines (1 of 2) 2012 Pneumococcal Vaccine: 50+ Years (2 of 2 - PPSV23, PCV20, or PCV21) 02/08/2018 12/14/2017 HIV Screening 07/12/2022 Hepatitis C Screening 07/12/2022 COVID-19 Vaccine (3 - 2024- season) 2025 11/23/2020, 10/26/2020 Influenza Vaccine (#1) 2025 4, 06/01/2012, 09/26/2010 Social Influencers of Health Screening 06/16/2025 06/16/2024 Hypertension/CHF/CAD Annual BMP Blood Test 09/13/2025 09/13/2024, 04/08/2024, 04/08/2024, Additional history exists DTaP,Tdap,and Td Vaccines (3 - Td or Tdap) 03/03/2026 03/03/2016, 09/26/2010 Breast Cancer Screening 07/20/2026 07/20/2024 Colorectal Cancer Screening: Colonoscopy 03/07/2029 03/07/2024 Cholesterol Screening (Lipid Panel) 03/15/2029 03/15/2024, 03/15/2024 Cervical Cancer Screening: HPV 07/14/2029 07/14/2024 Depression Screening Completed 02/23/2025 HIB Vaccines Aged Out No longer eligi ble based on patient's age to complete this topic HPV Vaccines Aged Out No longer eligi ble based on patient's age to complete this topic Hepatitis A Vaccines Aged Out No long er eligible based on patient's age to complete this topic Hepatitis B Vaccines Aged Out No long er eligible based on patient's age to complete this topic IPV Vaccines Aged Out No longer eligi ble based on patient's age to complete this topic MMR Vaccines Aged Out No longer eligi ble based on patient's age to complete this topic Meningococcal ACWY Vaccine Aged Out N o longer eligible based on patient's age to complete this topic Meningococcal B Vaccine Aged Out No l onger eligible based on patient's age to complete this topic RSV Immunization Patients Under 20 months Aged Out No longer eligible based on patient's age to complete this topic Varicella Vaccines Aged Out No longer eligible based on patient's age to complete this topic Goals Goal Patient Goal Type Associated Problems Recent Progress Patient-Stated? Author feel better. My legs feel stronger General Yes Dmitri Hart, PT PT STG x 8 visits from [facility] 02/09/2025 General No Dmitri Hart, PT Note: [x] = goal MET [] = goal NOT MET [x] Pt will improve active R knee flexion actively to 90 degrees in order to improve toe off during gait cycle [x] Pt will improve hip add strength to 3/5 or higher B [x] Pt will improve VMO recruitment from trace to poor on R and from poor to fair on L , [x] Pt will wake less than 1/night due to knee pain [x] Pt will be able to demonstrate proper use of SPC in clinic PT LTG x 18 visits from [facility] 02/09/2025 General Improving( 12:35 PM EDT) No Dmitri Hart, PT Note: [x] = goal MET [] = goal NOT MET [] Pt will be able to don/doff shoe wear without assist , [] Pt will wake less than 3/wk due to knee pain [] Pt will be able to visit top floor at home 1 or more times a wk as it relates to knee pain/Sx [] Pt will regularly be able to toilet transfer without assist consistently [] Able to retrieve item from floor [] Pt will experience no falls Procedures Procedure Name Priority Date/Time Associated Diagnosis Comments MO ARTHROCENTESIS/ASPIRA TION/INJECTION MAJOR JOINT/BURSA W/O U/S GUIDANCE Routine 04/13/2025 1:00 PM EDT Primary osteoarthritis of both knees MO ARTHROCENTESIS/ASPIRA TION/INJECTION MAJOR JOINT/BURSA W/O U/S GUIDANCE Routine 03/27/2025 10:45 AM EDT Primary osteoarthritis of both knees XR KNEE 4+ VIEWS BILAT Routine 03/27/2025 10:31 AM EDT Chronic pain of both knees COMPREHENSIVE METABOLIC PANEL Routine 09/13/2024 8:30 AM EST Primary hypertension MG MAMMO DIGITAL SCREENING W JOSHUA BILAT Routine 07/20/2024 3:33 PM EST Encounter for well woman exam with routine gynecological exam Screening breast examination HPV WITH REFLEX GENOTYPE Routine 07/14/2024 10:50 AM EST Encounter for well woman exam with routine gynecological exam Screening for cervical cancer LIPID PANEL Routine 03/15/2024 HM COLONOSCOPY Routine 03/07/2024 from Last 3 Months or Most Recently Relevant to Health Maintenance Results * MO ARTHROCENTESIS/ASPIRATION/INJECTION MAJOR JOINT/BURSA W/O U/S GUIDANCE (04/13/2025 1:00 PM EDT) Narrative Herman Albarran PA - 04/13/2025 1:00 PM EDT EFRAIN Junior 04/13/2025 2:04 PM L Inj/Asp: R knee Indications: pain Details: 22 G needle, anterolateral approach Medications: 4 mL lidocaine 1 %; 80 mg methylPREDNISolone acetate 80 mg/mL Outcome: tolerated well, no immediate complications Informed Consent: Site: Knee Laterality: Right Relevant images/test results available and reviewed: yes Health status cleared: Yes Procedure/treatment, purpose, treatment alternatives, risks/potential complications and benefits explained: yes Risk/complications/benefits details: Risks include but are not limited to: The treatment may not accomplish the desired results. Additionally bleeding, infection, damage to tendon, nerve, cartilage, muscle; thinning or lightening of the skin in the area of injection; flushing or redness of the face, elevated blood pressure or blood sugar, allergic reaction, rash, increased pain Benefits include relief of inflammation and pain Patient questions answered: yes Patient agrees, verbalizes understanding, and wants to proceed: yes Consent given by: Patient Informed consent discussion completed by Physician/GERONIMO with patient: Verbal Pre-procedure timeout performed: yes Result Miguel Angel ZUNIGA IN CLINIC/BEDSIDE ORDERABLES Fin al Result * MO ARTHROCENTESIS/ASPIRATION/INJECTION MAJOR JOINT/BURSA W/O U/S GUIDANCE (03/27/2025 10:45 AM EDT) Heramn Akhtar PA - 03/27/2025 10:45 AM EDT EFRAIN Junior 03/27/2025 1:06 PM L Inj/Asp: L knee Indications: pain Details: 22 G needle, anterolateral approach Medications: 4 mL lidocaine 1 %; 80 mg methylPREDNISolone acetate 80 mg/mL Outcome: tolerated well, no immediate complications Informed Consent: Site: Knee Laterality: Left Relevant images/test results available and reviewed: yes Health status cleared: Yes Procedure/treatment, purpose, treatment alternatives, risks/potential complications and benefits explained: yes Risk/complications/benefits details: Risks include but are not limited to: The treatment may not accomplish the desired results. Additionally bleeding, infection, damage to tendon, nerve, cartilage, muscle; thinning or lightening of the skin in the area of injection; flushing or redness of the face, elevated blood pressure or blood sugar, allergic reaction, rash, increased pain Benefits include relief of inflammation and pain Patient questions answered: yes Patient agrees, verbalizes understanding, and wants to proceed: yes Consent given by: Patient Informed consent discussion completed by Physician/GERONIMO with patient: Verbal Pre-procedure timeout performed: yes Result Miguel Angel ZUNIGA IN CLINIC/BEDSIDE ORDERABLES Fin al Result * XR Knee 4+ Views bilat (03/27/2025 10:31 AM EDT) Anatomical Region Laterality Modality Lower Extremities, Knee Bilateral [facility] 03/28/2025 7:57 AM EDT Impressions 03/28/2025 8:02 AM EDT Bilateral degenerative changes, left greater than right, with progression compared with 2019.. POS - [id number] -------- FINAL REPORT -------- Dictated By: Ginger Obando Dictated Date: 03/28/2025 07:57 ET Assigned Physician: Ginger Obando Reviewed and Electronically Signed By: Ginger Obando Signed Date: 03/28/2025 08:02 ET Workstation ID: [id number] Transcribed By: Self Edit Transcribed Date: 03/28/2025 07:57 ET Narrative 03/28/2025 8:02 AM EDT EXAM: Bilateral knee x-ray HISTORY: Chronic bilateral knee pain. COMPARISON: 05/23/2019 VIEWS: 4 views of both knees performed, AP and tunnel views performed weightbearing. FINDINGS: Progressive moderately severe joint space narrowing in the lateral compartments with progressive spurring and new subchondral sclerosis. Mild joint space narrowing and marginal spurring in the left medial compartment. Moderately severe joint space narrowing at the left lateral patellofemoral joint. Mild joint space narrowing at the right patellofemoral joint. Bilateral posterior patellar spurring. No acute fracture or malalignment detected. No destructive bone lesion. Small joint effusion on the left and trace on the right. Procedure Note Ginger Obando MD - 03/28/2025 EXAM: Bilateral knee x-ray HISTORY: Chronic bilateral knee pain. COMPARISON: 05/23/2019 VIEWS: 4 views of both knees performed, AP and tunnel views performedweightbearing. FINDINGS: Progressive moderately severe joint space narrowing in the lateralcompartments with progressive spurring and new subchondral sclerosis. Mildjoint space narrowing and marginal spurring in the left medialcompartment. Moderately severe joint space narrowing at the left lateralpatellofemoral joint. Mild joint space narrowing at the rightpatellofemoral joint. Bilateral posterior patellar spurring. No acutefracture or malalignment detected. No destructive bone lesion. Small jointeffusion on the left and trace on the right. IMPRESSION: Bilateral degenerative changes, left greater than right, with progressioncompared with 2019.. POS - [id number] -------- FINAL REPORT -------- Dictated By: Ginger Obando Dictated Date: 03/28/2025 07:57 ET Assigned Physician: Ginger Obando Reviewed and Electronically Signed By: Gigner Obando Signed Date: 03/28/2025 08:02 ET Workstation ID: [id number] Transcribed By: Self Edit Transcribed Date: 03/28/2025 07:57 ET Herman ZUNIGA IMG XR PROCEDURES Final Result * Comprehensive metabolic panel (09/13/2024 8:30 AM EST) Sodium 140 133 - 145 mmol/L LAB CHEMISTRY METHOD 09/13/2024 10:21 AM [facility] Potassium 4.5 3.5 - 5.5 mmol/L LAB CHEMISTRY METHOD 09/13/2024 10:21 AM [facility] Chloride 107 96 - 110 mmol/L LAB CHEMISTRY METHOD 09/13/2024 10:21 AM [facility] CO2 28 21 - 32 mmol/L LAB CHEMISTRY METHOD 09/13/2024 10:21 AM [facility] Anion Gap 5 3 - 11 LAB CHEMISTRY METHOD 09/13/2024 10:21 AM [facility] Glucose 88 70 - 100 mg/dL LAB CHEMISTRY METHOD 09/13/2024 10:21 AM [facility] BUN 19 5 - 25 mg/dL LAB CHEMISTRY METHOD 09/13/2024 10:21 AM [facility] Creatinine 0.90 0.50 - 1.10 mg/dL LAB CHEMISTRY METHOD 09/13/2024 10:21 AM [facility] eGFR 72 >=60 mL/min/1. 73m2 LAB CHEMISTRY METHOD 09/13/2024 10:21 AM [facility] Comment:Calculation based on the Chronic Kidney Disease Epidemiology Collaboration (CKD-EPI) equation refit without adjustment for race. BUN/Creatinine Ratio 21.1 LAB CHEMISTRY METHOD 09/13/2024 10:21 AM [facility] Calcium 9.2 8.5 - 10.5 mg/dL LAB CHEMISTRY METHOD 09/13/2024 10:21 AM [facility] AST (SGOT) 13 10 - 42 unit/L LAB CHEMISTRY METHOD 09/13/2024 10:21 AM [facility] ALT (SGPT) 20 10 - 60 unit/L LAB CHEMISTRY METHOD 09/13/2024 10:21 AM [facility] Alkaline Phosphatase 95 42 - 121 unit/L LAB CHEMISTRY METHOD 09/13/2024 10:21 AM [facility] Total Protein 6.5 6.0 - 8.0 g/dL LAB CHEMISTRY METHOD 09/13/2024 10:21 AM [facility] Albumin 3.4 3.2 - 5.0 g/dL LAB CHEMISTRY METHOD 09/13/2024 10:21 AM [facility] Total Bilirubin 0.3 0.0 - 1.4 mg/dL LAB CHEMISTRY METHOD 09/13/2024 10:21 AM [facility] Blood Venous blood specimen / Unknown Venipuncture / Unknown 09/13/2024 8:30 AM EST 09/13/2024 8:30 AM EST us Minerva ZUNIGA LAB BLOOD ORDERABLES Fin al Result [facility] [address] [place] [address], * MG Mammo Digital Screening w Joshua bilat (07/20/2024 3:33 PM EST) Anatomical Region Laterality Modality Breast Bilateral Mammography 07/25/2024 4:25 PM EST Impressions 07/25/2024 4:32 PM EST No mammographic evidence of malignancy. No suspicious interval change. A negative mammogram in the presence of a clinically suspicious palpable abnormality does not preclude the possibility of malignancy or alter the indications for biopsy. ASSESSMENT: BI-RADS 1: NEGATIVE RECOMMENDATION(S): 1: Routine screening mammogram BILATERAL in 1 year. -------- FINAL REPORT -------- Dictated By: Nicholas Montana Dictated Date: 07/25/2024 16:25 ET Assigned Physician: Nicholas Montana Reviewed and Electronically Signed By: Nicholas Montana Signed Date: 07/25/2024 16:32 ET Workstation ID: [id number] Transcribed By: Self Edit Transcribed Date: 07/25/2024 16:25 ET Narrative 07/25/2024 4:32 PM EST EXAM: SCREENING MAMMOGRAPHY, BILATERAL HISTORY: SCREENING. No additional history. COMPARISON: 06/04/2015, 05/29/2014 TECHNIQUE: Synthesized CC and MLO projections of each breast. Tomosynthesis of each breast in the CC and MLO projections. ADDITIONAL IMAGING: None Computer-aided detection was employed with the ShowKit AI 3-D. TISSUE DENSITY: There are scattered areas of fibroglandular density. (BI-RADS category B) FINDINGS: RIGHT BREAST: No suspicious mass. No suspicious calcification. No distortion. No additional suspicious right breast findings LEFT BREAST: No suspicious mass. No suspicious calcification. No distortion. No additional suspicious left breast findings Procedure Note Nicholas Montana MD - 07/25/2024 EXAM: SCREENING MAMMOGRAPHY, BILATERAL HISTORY: SCREENING. No additional history. COMPARISON: 06/04/2015, 05/29/2014 TECHNIQUE: Synthesized CC and MLO projections of each breast.Tomosynthesis of each breast in the CC and MLO projections. ADDITIONAL IMAGING: None Computer-aided detection was employed with the ShowKit AI 3-D. TISSUE DENSITY: There are scattered areas of fibroglandular density.(BI-RADS category B) FINDINGS: RIGHT BREAST: No suspicious mass. No suspicious calcification. No distortion. Noadditional suspicious right breast findings LEFT BREAST: No suspicious mass. No suspicious calcification. No distortion. Noadditional suspicious left breast findings IMPRESSION: No mammographic evidence of malignancy. No suspicious interval change. A negative mammogram in the presence of a clinically suspicious palpableabnormality does not preclude the possibility of malignancy or alter theindications for biopsy. ASSESSMENT: BI-RADS 1: NEGATIVE RECOMMENDATION(S): 1: Routine screening mammogram BILATERAL in 1 year. -------- FINAL REPORT -------- Dictated By: Nicholas Montana Dictated Date: 07/25/2024 16:25 ET Assigned Physician: Nicholas Montana Reviewed and Electronically Signed By: Nicholas Montana Signed Date: 07/25/2024 16:32 ET Workstation ID: [id number] Transcribed By: Self Edit Transcribed Date: 07/25/2024 16:25 ET Sylvia Sullivan CNM IMG BI PROCEDURES Final Resul t * HPV with reflex genotype (07/14/2024 10:50 AM EST) [facility] HPV Negative Negative LAB MICROBIOLOGY METHOD 07/15/2024 2:44 PM EST [facility] Brushing/Spatula Cervix uteri structure / Unknown 07/14/2024 10:50 AM EST 07/15/2024 6:50 AM EST Sylvia Sullivan CNM LAB MOLECULAR DIAGNOSTICS ORD ERABLES Final Result [facility] [address] [place] [address], * (ABNORMAL) Lipid panel (03/15/2024) [facility] LDL/HDL Ratio 3 0 - 4 Triglycerides 116 0 - 150 mg/dL Cholesterol 193 0 - 200 mg/dL HDL 57 >=40 mg/dL LDL Cholesterol 113(A) 0 - 100 mg/dL Blood Venous blood specimen / Unknown 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
[2025-05-14 14:36] VITALS: BP 127/77; PULSE 92; RESP 20; TEMP 36.6; O2SAT 100
[2025-05-14] MEDS: iohexoL 350 MG/ML 100 ML INFUS..BTL IV (15:24)
--- NOTE | 2025-05-14 15:30 | PC.NURSE ---
redness/lump on sternum. old scar in same location. no drainage.
[2025-05-14 16:26] VITALS: BP 126/70; PULSE 82; RESP 19; TEMP 36.8; O2SAT 98
[2025-05-14 17:40] VITALS: BP 123/67; PULSE 96; RESP 18; TEMP 36.8; O2SAT 98
[2025-05-14] MEDS: Lidocaine HCl 1 % MPF 5 ML VIAL INFILTRATI (17:40)
[2025-05-14 18:33] VITALS: BP 123/67; PULSE 96; RESP 18; TEMP 36.8; O2SAT 98
== END 2025-05-14 18:34 | disposition home or self-care (01) ==
PROVIDERS: Physician Assistant Medical; Emergency Provider Emergency Medicine; PCP Physician Assistant
DX: L02.213 Cutaneous abscess of chest wall (principal)
CPT/HCPCS: 10060; 36415; 71260; 80053; 85025; 85652; 86140; 96374; 99284; 99285; J2003; J2270; Q9967

== ENCOUNTER → 2025-05-14 14:11 | Outpatient (BNV) | payer OTHER, SELFPAY | PROVIDERS: Emergency Provider Emergency Medicine; PCP Physician Assistant; Visit Provider Radiology Diagnostic Radiology | DX: L02.213 Cutaneous abscess of chest wall (principal) | CPT/HCPCS: 71260 ==

== ENCOUNTER 2025-06-16 14:11 | Outpatient (AMB) | payer OTHER, SELFPAY ==
--- NOTE | 2025-06-16 14:15 | MHC.OFFVIS ---
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 The patient reports having knee pain for many years, which has worsened over time. The pain is located on the sides of both knees and is exacerbated by sitting for more than 30 minutes, climbing stairs, bending and cold weather. The patient uses a cane for mobility and has received cortisone injections in the past, which provided limited relief. She also completed physical therapy without improvement. The patient has a history of fibromyalgia, which contributes to her overall pain experience. She also reports a previous diagnosis of gout, which was suggested after a large knee effusion was drained in the emergency room last year. The patient has been advised to follow up with a Paper Coater for further management of gout. - Onset: Chronic, worsening over time - Quality: Aching, stabbing, numbness, burning pain - Location: Bilateral knees, primarily on the sides - Exacerbating factors: Sitting for extended periods, climbing stairs, bending, walking, cold weather - Relieving factors: Cortisone injections (limited relief) - Interference: Requires use of a cane for mobility - Affect: Pain impacts daily activities and mobility - Analgesia: Current medications include Motrin, diclofenac gel, gabapentin; limited relief from cortisone injections - Adverse Effects: No specific adverse effects reported - Activities of Daily Living: Difficulty with prolonged sitting, climbing stairs, and requires cane for walking - Aberrant Drug Related Behaviors: None reported [facility] Medical History (Updated 06/16/25 @ 16:02 by FLACO Hernandez) Lumbar spondylosis Varicose veins of lower extremities with complications PLMD (periodic limb movement disorder) Hypothyroidism PAU (obstructive sleep apnea) Heartburn Fibromyalgia Asthma Chronic low back pain Osteoarthritis of knees, bilateral Bilateral knee pain Review of Systems Const Details: - Musculoskeletal: Reports chronic bilateral knee pain, intermittent swelling L>R, and stiffness - Neurological: Denies numbness or tingling, weakness, instability - General: Reports difficulty with mobility, requires cane All systems reviewed & are unremarkable except as noted in HPI and below Physical Exam Vital Signs: Last Vital Signs Pulse 92 06/16/25 14:20 BP 139/78 06/16/25 14:20 Pulse Ox 100 06/16/25 14:20 Oxygen Delivery Method Room Air 06/16/25 14:20 BMI result Body Mass Index 34.8 General: Appears afebrile. Alert and oriented. Mood and affect appropriate. Follows and participates in conversation appropriately. Respiratory effort is unlabored. No cough. Able to transition from sit to stand unassisted. Ambulates with bilaterally normal heel strike and toe off. Extrem General: Yes capillary refill normal, Yes no clubbing, cyanosis or edema and Yes no calf tenderness Right lower extremity: knee (Limited ROM due to pain) Details: normal to inspection, tenderness Location: of the medial joint line and of the lateral joint line and crepitus; no swelling, no ecchymosis, no deformity and no unusual warmth Left lower extremity: knee (Limited ROM due to pain) Details: normal to inspection, tenderness Location: of the medial joint line and of the lateral joint line and crepitus; no swelling, no ecchymosis, no deformity and no unusual warmth Results Reviewed Results Reviewed: XR KNEE, RIGHT 04/02/25 CLINICAL INFORMATION: Pain and swelling in right knee COMPARISON: None available. TECHNIQUE: Four views of the right knee. FINDINGS: The large suprapatellar joint effusion without loose bodies. No visible acute fracture or dislocation seen. There is loss of tricompartment joint space with periarticular spurring of medial and patellofemoral compartments. No visible acute fracture or dislocation seen. IMPRESSION: 1. Large suprapatellar joint effusion without loose bodies. 2. Degenerative changes medial and patellofemoral compartments. No visible acute fracture or dislocation seen. XR KNEE, LEFT 02/14/24 CLINICAL INFORMATION: Knee pain COMPARISON: None available. TECHNIQUE: Four views of the left knee. FINDINGS: No evidence of acute fracture or malalignment. Tricompartmental left knee osteoarthritis, worst in the lateral femorotibial compartment, where it is least moderate as characterized by moderate joint space narrowing, osteophytosis, and subchondral sclerosis. Of note, evaluation of the joint space is limited in the absence of weightbearing views. Large suprapatellar joint effusion. Soft tissues unremarkable. IMPRESSION: 1. No evidence of acute fracture or malalignment of the left knee. 2. At least moderate tricompartmental left knee osteoarthritis with a large suprapatellar joint effusion. Assessment & Plan Assessment & Plan (1) Bilateral knee pain: Code(s): M25.561 - Pain in right knee; M25.562 - Pain in left knee Category: Medical (2) Osteoarthritis of knees, bilateral: Code(s): M17.0 - Bilateral primary osteoarthritis of knee Category: Medical Plan The plan includes considering radiofrequency ablation for knee pain management, which is covered by the patient's insurance. her insurance does not cover [employer] PNS trial. Diagnostic nerve blocks will be performed to assess the potential effectiveness of radiofrequency ablation. If the patient responds positively to the nerve blocks, genicular radiofrequency ablation will be pursued. Schedule bilateral diagnostic genicular nerve blocks with local and fluoroscopy. Expectations, risks and benefits were reviewed. Patient is aware she will be contacted to schedule this procedure. The patient is advised to continue using diclofenac gel and gabapentin for pain management. The patient is encouraged to continue lose weight to alleviate knee pain. Follow-up with a barrel straightener is recommended for gout management. All questions and concerns have been answered and patient agreed with the treatment plan. Follow up after injection and sooner as needed. Patient was informed and verbally consented to the use of an ambient scribe for clinic note documentation during this visit. Medications: New celecoxib (Celebrex) Take it with food and full glass of water. Avoid naproxen and Motrin. 200 mg PO BID PRN 60 caps 0RF pain M17.0 - Bilateral primary osteoarthritis of knee, M25.561 - Pain in right knee, M25.562 - Pain in left knee lidocaine 5% 1 patch topical DAILY 30 ea 5RF pain 30 days M17.0 - Bilateral primary osteoarthritis of knee, M25.561 - Pain in right knee, M25.562 - Pain in left knee Discontinued naproxen Discontinued Reason: Patient Completed Course 500 mg PO BID PRN 14 tabs 0RF pain Coding Level of Care Code New Pt Level 4 (58389) Diagnoses Bilateral knee pain M25.561; M25.562 Osteoarthritis of knees, bilateral M17.0
[2025-06-16 14:20] VITALS: BP 139/78; PULSE 92; O2SAT 100; BMI 34.8
--- OUTSIDE RECORDS SUMMARY | 2025-06-16 21:09 | XMS_ITS | Clinical Summary ---
Author Organization [facility] Address [address] [place] [address] Phone Care Team Providers Care Parcel Post Clerk Name Role Phone Minerva Terrell Primary Care Provider + Allergies No known active allergies Medications inhalational spacing device (Aerochamber MV) inhaler 1 each by Not Applicable route. 022 Active cholecalciferol (VITAMIN D-3) 50 mcg (2,000 [...] 1-3 HOURS BEFORE BEDTIME FOR 30 DAYS 024 Active losartan (COZAAR) 100 mg tablet TAKE 1 TABLET BY MOUTH EVERY DAY 90 tablet 2 025 Active sertraline (ZOLOFT) 100 mg tabletIndications :Anxiety and depression Take 1 tablet (100 mg total) by mouth 1 (one) time each day. 025 Active hydrOXYzine HCL (ATARAX) 50 mg tablet Take 1 tablet (50 mg total) by mouth at bedtime. 025 Active albuterol HFA (PROAIR HFA ; PROVENTIL HFA ; VENTOLIN HFA) 90 mcg/actuation inhalerIndication s:Moderate persistent asthma without complication Inhale 2 puffs by mouth every 4 (four) hours if needed for wheezing. 18 g 3 025 Active fluticasone furoate-vilantero L (Breo Ellipta) 100-25 mcg/dose inhalerIndication s:Moderate persistent asthma without complication Inhale 1 puff by mouth 1 (one) time each day. 1 each 11 Active gabapentin (NEURONTIN) 300 mg capsule Take 1 capsule (300 mg total) by mouth 3 (three) times a day. 90 capsule 5 Active diclofenac (VOLTAREN) 1 % topical gel Apply 2 g topically 4 (four) times a day if needed (pain). 100 g 3 025 2024 Active cyclobenzaprine (FLEXERIL) 10 mg tablet Take 1 tablet (10 mg total) by mouth 3 (three) times a day if needed for muscle spasms. 30 tablet 2 025 2025 Active calcium carbonate-vitamin D 500 mg-5 mcg (200 unit) per tablet Take 1 tablet by mouth 2 (two) times a day. 180 each 3 025 2025 Active levothyroxine (SYNTHROID, LEVOTHROID) 175 mcg tablet TAKE 1 TABLET BY MOUTH EVERY DAY 90 tablet 3 Active loratadine (Claritin) 10 mg tabletIndications :Moderate persistent asthma without complication,Seas onal allergic rhinitis, unspecified trigger Take 1 tablet (10 mg total) by mouth 1 (one) time each day. 30 each 1 025 Active solifenacin (VESICARE) 5 mg tabletIndications :OAB (overactive bladder) TAKE 1 TABLET BY MOUTH 1 (ONE) TIME EACH DAY. SWALLOW TABLET WHOLE DO NOT CRUSH, CHEW, OR SPLIT. 90 tablet Active sertraline (ZOLOFT) 50 mg tablet Take 1 tablet (50 mg total) by mouth 1 (one) time each day. Take together with 100mg to make 150mg daily Active Breo Ellipta 200-25 mcg/dose inhalerIndication s:Moderate persistent asthma, uncomplicated INHALE UN SOPLIDO POR VIA ORAL TODOS LOS TORO 60 each 2 Active acetaminophen (TYLENOL) 500 mg tablet Take 1 tablet (500 mg total) by mouth every 8 (eight) hours if needed for mild pain. Active diclofenac (VOLTAREN) 1 % topical gelIndications:Pr imary osteoarthritis of both knees Apply 4 g topically 2 (two) times a day. 240 g 2 Active ibuprofen (ADVIL,MOTRIN) 800 mg tablet TAKE 1 TABLET BY MOUTH EVERY 8 HOURS NEEDED FOR PAIN 90 tablet 4 Active tirzepatide, weight loss, (Zepbound) 15 mg/0.5 mL injectionIndicati ons:Class 2 severe obesity due to excess calories with serious comorbidity and body mass index (BMI) of 35.0 to 35.9 in adult Inject 0.5 mL (15 mg total) under the skin every 7 (seven) days. 2 mL 5 025 2025 Active ibuprofen (ADVIL,MOTRIN) 800 mg tablet TAKE 1 TABLET BY MOUTH EVERY 8 HOURS NEEDED FOR PAIN 90 tablet 4 025 2024 Discontinued tirzepatide, weight loss, (Zepbound) 15 mg/0.5 mL injectionIndicati ons:Class 2 obesity due to excess calories with body mass index (BMI) of 39.0 to 39.9 in adult, unspecified whether serious comorbidity present Inject 0.5 mL (15 mg total) under the skin every 7 (seven) days. 2 mL 5 025 2024 Discontinued(R eorder) Active Problems Problem Noted Date Diagnosed Date Varicose veins of bilateral lower extremities with other complications 07/13/2024 Postoperative hypothyroidism 07/13/2024 Overview (07/13/2024): -2ary to Graves Impaired glucose tolerance 07/13/2024 Heartburn 07/13/2024 Vitamin D deficiency 09/14/2023 PLMD (periodic limb movement disorder) 0 Overview (10/05/2023): Noted on BiPAP study 2019. Asthma 05/24/2019 Overview (10/05/2023): Last Assessment & [...] PAU (obstructive sleep apnea) 09/04/2016 Overview (10/05/2023): [facility] Polysomnogram treatment study. Date 08/21/2019. Wt 218#; BMI 35; SE 90 % SM 93 %; spent 24 % of the study in REM. On BiPAP @ 20/07; RDI 2.2 (AHI 1.8), Central apneas 0; Obstructive apneas 1; Mixed apneas 1; hypopneas 7; RERAs 2; and, average oxygen saturation was 92%. For the entire study, PLMs ~20. Last Assessment & Plan: Patient is having supplier problems with [employer]. She will call again the company. She will follow-up with Ingrid in her next appointment with a compliance report. Osteoarthritis of both knees 09/04/2016 Adenoma of large intestine 02/22/2014 Overview (07/13/2024): sessile serrated adenoma repeat colonoscopy in 2017 HTN (hypertension) Asthma Anxiety and depression Encounters Date Type Department Care Team Description 06/13/2025 Telephone Vascular Surgery [facility] [address] [facility] [address] [place] [phone] Dianelys Sapp MA 06/01/2025 9:00 AM EDT Office Visit Bariatric Surgery [facility] 175 [facility] [address] [place] [phone] Shania Macdonald MD Class 2 severe obesity due to excess calories with serious comorbidity and body mass index (BMI) of 35.0 to 35.9 in adult (Primary Dx); Class 2 obesity due to excess calories with body mass index (BMI) of 39.0 to 39.9 in adult, unspecified whether serious comorbidity present 05/25/2025 10:30 AM EDT Office Visit Orthopedics - [address] [phone] Herman Albarran PA Primary osteoarthritis of both knees (Primary Dx) 05/04/2025 Telephone Bariatric Surgery [facility] [address] [facility] [address] [place] [phone] Shania Macdonald MD 04/13/2025 1:00 PM EDT Office Visit Orthopedics [address] [phone] Herman Albarran PA Primary osteoarthritis of both knees (Primary Dx) 04/13/2025 Telephone Pulmonology - [place] [facility] [address] [place] [phone] Saige Krueger NP 04/10/2025 11:[address] [facility] [place] [facility] [address] [place] [phone] Dmitri Hart, PT Primary osteoarthritis of both knees (Primary Dx); Pain in both lower extremities 04/06/2025 11:30 AM EDT Treatment [address] [phone] Larry Rodriguez, ROAD CONTRACTOR Primary osteoarthritis of both knees (Primary Dx) 03/30/2025 Telephone Internal Medicine - [address] [phone] Minerva Terrell PA 03/29/2025 11:30 AM EDT Treatment [address] [phone] Dmitri Hart PT Primary osteoarthritis of both knees (Primary Dx); Pain in both lower extremities 03/27/2025 10:45 AM EDT Office Visit Orthopedics - [address] [phone] Herman Albarran PA Primary osteoarthritis of both knees (Primary Dx) 03/27/2025 10:15 AM EDT - 03/27/2025 11:59 PM EDT Hospital Encounter XRAY - [address] [phone] Chronic pain of both knees Discharge Disposition: Home or Self Care 03/22/2025 9:30 AM EDT Treatment [address] [phone] Eric Bains PTA Primary osteoarthritis of both knees (Primary Dx) 03/22/2025 Telephone Pulmonology [address] [phone] Kelsie Bowles MA 03/20/2025 1:00 PM EDT Office Visit Pulmonology [address] [phone] Saige Krueger NP PAU (obstructive sleep apnea) (Primary Dx); PLMD (periodic limb movement disorder); Insomnia due to other mental disorder; Moderate persistent asthma without complication; Seasonal allergic rhinitis, unspecified trigger; Heartburn; Class 2 obesity due to excess calories in adult, unspecified BMI, unspecified whether serious comorbidity present 03/20/2025 12:30 PM EDT Treatment [address] [phone] Rafael Flores PTA Primary osteoarthritis of both knees (Primary Dx) from Last 3 Months Immunizations Immunization Administration [...] obesity with BMI of 4 0.0-44.9, adult ([facility] V24, [facility] V28) 05/04/2017 DX:Morbid obesity wit h BMI of 40.0-44.9, adult ([facility]) Fibromyalgia 10/20/2016 DX:Fibromyalgia; COMMENT: Citalopram kept her [...] 3 Arthritis Mother Heart attack Mother 4 CT's Heart attack Other 1 uncle Breast cancer [...] Sign Reading Time Taken Comments Blood Pressure 108/75 06/01/2025 9:14 AM EDT Pulse 93 06/01/2025 9:14 AM EDT Temperature 36.6 C (97.8 F) 06/01/2025 9:14 AM EDT Respiratory Rate 16 05/25/2025 10:07 AM EDT Oxygen Saturation 98% 03/20/2025 1:07 PM EDT Inhaled Oxygen Concentration - - Weight 98.4 kg (217 lb) 06/01/2025 9:14 AM EDT Height 167.6 cm (5' 6 ) 06/01/2025 9:14 AM EDT Body Mass Index 35.02 06/01/2025 9:14 AM EDT Plan of Treatment Upcoming Encounters Date Type Department Care Team (Late st Contact Info) Description 07/06/2025 4:00 PM EST Office Visit Orthopedics [facility] [address] [place] [phone] Herman Albarran PA [address] [place] [phone] 09/20/2025 11:25 AM EST Office Visit Pulmonology - [place] 175 [facility] [address] [place] [phone] Saige Krueger NP [address] [place] [phone] 11/30/2025 11:15 AM EDT Office Visit Bariatric Surgery - [place] 175 [facility] [address] [place] [phone] Shania Macdonald MD [address] [place] [phone] Health Maintenance Due Date Last Done Comments RSV Immunization Adult Patients (1 - Risk 50-74 years 1-dose series) 2012 Zoster Vaccines (1 of 2) 2012 Pneumococcal Vaccine: 50+ Years (2 of 2 - PPSV23, PCV20, or PCV21) 02/08/2018 12/14/2017 HIV Screening 07/12/2022 Hepatitis C Screening 07/12/2022 COVID-19 Vaccine (3 - season) 2025 11/23/2020, 10/26/2020 Influenza Vaccine (#1) [...] PT PT STG x 8 [facility] 02/09/2025 General No Dmitri Hart, PT Note: [...] clinic PT LTG x 18 visits from [facility] 02/09/2025 General Improving( 12:35 PM EDT) No [...] Procedure Name Priority Date/Time Associated Diagnosis Comments VA ARTHROCENTESIS/ASPIRA TION/INJECTION MAJOR JOINT/BURSA W/O U/S GUIDANCE Routine 04/13/2025 1:00 PM EDT Primary osteoarthritis of both knees VA ARTHROCENTESIS/ASPIRA TION/INJECTION MAJOR JOINT/BURSA W/O U/S GUIDANCE [...] Recently Relevant to Health Maintenance Results * VA ARTHROCENTESIS/ASPIRATION/INJECTION MAJOR JOINT/BURSA W/O U/S GUIDANCE (04/13/2025 1:00 PM EDT) Herman Akhtar PA - 04/13/2025 1:00 PM EDT EFRAIN [...] with patient: Verbal Pre-procedure timeout performed: yes Herman ZUNIGA IN CLINIC/BEDSIDE ORDERABLES Fin al Result * VA ARTHROCENTESIS/ASPIRATION/INJECTION MAJOR JOINT/BURSA W/O U/S GUIDANCE (03/27/2025 10:45 AM EDT) Herman Akhtar PA - 03/27/2025 10:45 AM EDT [...] with patient: Verbal Pre-procedure timeout performed: yes us Herman ZUNIGA IN CLINIC/BEDSIDE ORDERABLES Fin al Result * XR Knee 4+ Views bilat (03/27/2025 10:31 AM EDT) Anatomical Region Laterality Modality Lower Extremities, Knee Bilateral Radiogra phic Imaging 03/28/2025 7:57 AM EDT Impressions 03/28/2025 8:02 AM EDT Bilateral degenerative changes, left greater than right, with progression compared with 2018.. POS - [id number] -------- FINAL REPORT -------- Dictated By: Ginger Obando Dictated Date: 03/28/2025 07:57 ET Assigned Physician: Ginger Obando Reviewed and Electronically Signed By: Ginger Obando Signed Date: 03/28/2025 08:02 ET Workstation ID: [id number] Transcribed By: Self Edit Transcribed Date: 03/28/2025 [...] right, with progressioncompared with 2019.. POS - [id number] -------- FINAL REPORT -------- Dictated By: Ginger Obando Dictated Date: 03/28/2025 07:57 ET Assigned Physician: Ginger Obando Reviewed and Electronically Signed By: Ginger Obando Signed Date: 03/28/2025 08:02 ET Workstation ID: [id number] Transcribed By: Self Edit Transcribed Date: 03/28/2025 07:57 ET Herman ZUNIGA IMG XR PROCEDURES Final Result * Comprehensive metabolic panel (09/13/2024 8:30 AM EST) Sodium 140 133 - 145 mmol/L LAB CHEMISTRY METHOD 09/13/2024 10:21 AM [facility] Potassium 4.5 3.5 - 5.5 mmol/L LAB CHEMISTRY METHOD 09/13/2024 10:21 AM [facility] Chloride 107 96 - 110 mmol/L LAB CHEMISTRY METHOD 09/13/2024 10:21 AM [facility] CO2 28 21 - 32 mmol/L LAB CHEMISTRY METHOD 09/13/2024 10:21 AM [facility] Anion Gap 5 3 - 11 LAB CHEMISTRY METHOD 09/13/2024 10:21 AM [facility] Glucose 88 70 - 100 mg/dL LAB CHEMISTRY METHOD 09/13/2024 10:21 AM [facility] BUN 19 5 - 25 mg/dL LAB CHEMISTRY METHOD 09/13/2024 10:21 AM [facility] Creatinine 0.90 0.50 - 1.10 mg/dL LAB CHEMISTRY METHOD 09/13/2024 10:21 AM [facility] eGFR 72 >=60 mL/min/1. 73m2 LAB CHEMISTRY METHOD 09/13/2024 10:21 AM [facility] Comment:Calculation based on the Chronic Kidney Disease Epidemiology Collaboration (CKD-EPI) equation refit without adjustment for race. BUN/Creatinine Ratio 21.1 LAB CHEMISTRY METHOD 09/13/2024 10:21 AM [facility] Calcium 9.2 8.5 - 10.5 mg/dL LAB CHEMISTRY METHOD 09/13/2024 10:21 AM [facility] AST (SGOT) 13 10 - 42 unit/L LAB CHEMISTRY METHOD 09/13/2024 10:21 AM [facility] ALT (SGPT) 20 10 - 60 unit/L LAB CHEMISTRY METHOD 09/13/2024 10:21 AM [facility] Alkaline Phosphatase 95 42 - 121 unit/L LAB CHEMISTRY METHOD 09/13/2024 10:21 AM [facility] Total Protein 6.5 6.0 - 8.0 g/dL LAB CHEMISTRY METHOD 09/13/2024 10:21 AM [facility] Albumin 3.4 3.2 - 5.0 g/dL LAB CHEMISTRY METHOD 09/13/2024 10:21 AM [facility] Total Bilirubin 0.3 0.0 - 1.4 mg/dL LAB CHEMISTRY METHOD 09/13/2024 10:21 AM [facility] Blood Venous blood specimen / Unknown Venipuncture / Unknown 09/13/2024 8:30 AM EST 09/13/2024 8:30 AM EST us Minerva ZUNIGA LAB BLOOD ORDERABLES Fin al Result [facility] [address] [place] [address], [place] [phone] * MG Mammo Digital Screening w Joshua [...] Signed Date: 07/25/2024 16:32 ET Workstation ID: [id number] Transcribed By: Self Edit Transcribed Date: 07/25/2024 16:25 ET Narrative 07/25/2024 4:32 PM EST EXAM: SCREENING MAMMOGRAPHY, BILATERAL HISTORY: SCREENING. No additional history. COMPARISON: 06/04/2015, 05/29/2014 TECHNIQUE: Synthesized CC and MLO projections of each breast. Tomosynthesis of each breast in the CC and MLO projections. ADDITIONAL IMAGING: None Computer-aided detection was employed with the ClarityD Neomatrix AI 3-D. TISSUE DENSITY: There are scattered [...] None Computer-aided detection was employed with the iCAD profound AI 3-D. TISSUE DENSITY: There are scattered [...] Signed Date: 07/25/2024 16:32 ET Workstation ID: [id number] Transcribed By: Self Edit Transcribed Date: 07/25/2024 16:25 ET Sylvia Sullivan CNM IMG BI PROCEDURES Final Resul t * HPV with reflex genotype (07/14/2024 10:50 AM EST) HPV Negative Negative LAB MICROBIOLOGY METHOD 07/15/2024 2:[address] [facility] Brushing/Spatula Cervix uteri structure / Unknown 07/14/2024 10:50 AM EST 07/15/2024 6:50 AM EST Sylvia Sullivan CNM LAB MOLECULAR DIAGNOSTICS ORD ERABLES Final Result [facility] [address] [place] [address], * (ABNORMAL) Lipid panel (03/15/2024) LDL/HDL Ratio 3 0 - 4 Triglycerides 116 0 - 150 mg/dL Cholesterol 193 0 - 200 mg/dL HDL 57 >=40 mg/dL LDL Cholesterol 113(A) 0 - 100 mg/dL Blood Venous blood specimen / Unknown us Historical Provider MD LAB BLOOD ORDERABLES Eloisa l Result * Colonoscopy (03/07/2024) Colonoscopy no interpretation abstracted Anatomical Region Laterality Modality Other Historical Provider MD HEALTH MAINTENANCE Final Result from Last 3 Months or Most Recently Relevant to Health Maintenance Insurance [facility] [employer] Care Teams Parcel Post Clerk Relationship Specialty Start Date End Date Minerva Terrell PA [address] [place] [address] PCP - General 07/06/23
--- OUTSIDE RECORDS SUMMARY | 2025-06-16 21:09 | XMS_ITS | Encounter Summary ---
Author Organization [facility] Address [address] [place] [address] Care Team Providers Care Administrative Sales Assistant Name Role Phone Minerva Terrell Primary Care Provider + Encounter Details Date Type Department Care Team (Late st Contact Info) Description 06/13/2025 Telephone Vascular Surgery - [place] [address] [place] [address] Dianelys Sapp MA Social History Tobacco Use Types Packs/Day Years Used Date Smoking Tobacco: Former Smokeless Tobacco: Never Alcohol Use Standard Drinks/Week Comments No 0 [...] file Not on file Not on file documented as of this encounter Progress Notes * Dianelys Sapp MA - 06/13/2025 10:15 AM EST Pending auth from [facility] for cpt codes 96771, [id number] & [id number]. documented in this encounter Plan of Treatment Upcoming Encounters Date Type Department Care Team (Late st Contact Info) Description 07/06/2025 4:00 PM EST Office Visit [place] [facility] [address] [place] [address] Herman Albarran PA [address] [place] [phone] 09/20/2025 11:25 AM EST Office Visit Pulmonology - [place] [facility] [address] [place] [phone] Saige Krueger NP [address] [place] [phone] 11/30/2025 11:15 AM EDT Office Visit Bariatric Surgery - [place] [facility] [address] [place] [phone] Shania Macdonald MD [address] [place] [phone] documented as of this encounter Goals Goal Patient Goal Type Associated Problems Recent Progress Patient-Stated? Author feel better. My legs feel stronger General Yes Dmitri Hart, PT PT STG x 8 visits from [facility] 02/09/2025 General No Dmitri Hart, PT Note: [...] clinic PT LTG x 18 visits from eval 02/09/2025 General Improving( 12:35 PM EDT) No Dmitri Hart PT Note: [x] = goal MET [] [...] floor [] Pt will experience no falls documented as of this encounter Visit Diagnoses Not on filedocumented in this encounter Additional Health Concerns Assessment Noted Time PHQ-9 Depression Total Score: 0 02/24/20 25 9:47 AM EDT documented as of this encounter Care Teams Administrative Sales Assistant Relationship Specialty Start Date End Date Minerva Terrell PA [address] [place] [address] PCP - General 07/06/23 documented as of this encounter
== END 2025-06-16 15:03 | disposition home or self-care (01) ==
LOC: HO.PMC 14:11
PROVIDERS: PCP Physician Assistant; Visit Provider Nurse Practitioner Family
DX: M25.561 Pain in right knee (principal); M25.562 Pain in left knee; M17.0 Bilateral primary osteoarthritis of knee
CPT/HCPCS: 99204

== ENCOUNTER → 2025-06-16 14:11 | Outpatient (BNVA) | payer OTHER, SELFPAY | PROVIDERS: PCP Physician Assistant; Visit Provider Nurse Practitioner Family | DX: M17.0 Bilateral primary osteoarthritis of knee (principal); M25.561 Pain in right knee; M25.562 Pain in left knee | CPT/HCPCS: 99202 ==